=== PATIENT | female | born 1950 | race Caucasian/White ===

== ENCOUNTER 2022-11-10 12:57 | Emergency (ER) | payer MEDICARE, MEDICAID ==
[~2022-11-10] VITALS: Ht 165.1 cm; Wt 82.0 kg
[2022-11-10 16:16] LABS: BASOPHILS % 0.3 % (0.0-2.0); EOSINOPHILS % 1.3 % (0.0-5.0); HEMOGLOBIN. 12.8 g/dL (12.0-16.0); MEAN CORPUSCULAR VOLUME 90.1 fL (81.0-99.0); MONOCYTES % 9.9 % (2.0-8.0); NEUTROPHILS % 64.5 % (40.0-76.0); PLATELET 88 x1000/uL (130-400); RED BLOOD CELL COUNT 3.99 mill/uL (4.2-5.4); RED CELL DISTRIBUTION WIDTH 13.2 % (11.6-14.6)
[2022-11-10 16:26] LABS: CHLORIDE 109 mEq/L (98-107)
[2022-11-10 16:36] LABS: ETHANOL BLOOD < 10 mg/dL
[2022-11-10 19:20] VITALS: BP 161/70
== END 2022-11-10 19:33 | disposition home or self-care (01) ==
LOC: ER 13:27
DX: M79.662 Pain in left lower leg (principal); I10 Essential (primary) hypertension; R41.82 Altered mental status, unspecified; F31.9 Bipolar disorder, unspecified; I25.2 Old myocardial infarction; Z86.73 Personal history of transient ischemic attack (TIA), and cerebral infarction without residual deficits
CPT/HCPCS: 36415; 71045; 80053; 80320; 83880; 84484; 85025; 93005; 93970; 99285; G0480

== ENCOUNTER 2025-03-03 09:58 | Emergency (ER) | payer OTHER, MEDICAID ==
[~2025-03-03] VITALS: Ht 162.6 cm; Wt 100.0 kg
[~2025-03-03 09:58] MED LIST: AMLO5TAB88 PO; BACL-141 PO; BENZ1TAB78 PO; ESCI10TA PO; FURO40TA5 PO; ISOS30TA91 PO; LEVE500T19 PO; LISI40TA13 PO; PREG75CA76 PO; PRIM50TA5 PO; PROT40 MT; QUET200T30 PO; VALP250C3 PO
[2025-03-03 10:00] VITALS: O2SAT 98
[2025-03-03] MEDS: ACETAMINOPHEN 325MG TABLET PO ONE (10:26)
[2025-03-03] MEDS: ONDANSETRON HCL 4MG TABLET PO ONE (10:26)
[2025-03-03] MEDS ORDERED: TOPUD PO (11:48)
[2025-03-03 13:55] VITALS: BP 151/74; PULSE 80; RESP 14; TEMP 37.7; O2SAT 98
== END 2025-03-03 13:57 ==
LOC: ER 09:58
DX: S40.029A Contusion of unspecified upper arm, initial encounter (principal); E11.9 Type 2 diabetes mellitus without complications; F41.9 Anxiety disorder, unspecified; Z79.899 Other long term (current) drug therapy; Z86.73 Personal history of transient ischemic attack (TIA), and cerebral infarction without residual deficits; Z88.8 Allergy status to other drugs, medicaments and biological substances; X58.XXXA Exposure to other specified factors, initial encounter; Y93.89 Activity, other specified; Y92.89 Other specified places as the place of occurrence of the external cause; Y99.8 Other external cause status
CPT/HCPCS: 99284; 73060; Q0162; 99283

== ENCOUNTER 2025-03-30 17:38 | Emergency (ER) | payer OTHER, MEDICAID ==
[~2025-03-30] VITALS: Ht 152.4 cm; Wt 100.0 kg
[~2025-03-30 17:38] MED LIST changes: -LISI40TA13 PO; +LISI40TA21 PO; +TOPUD PO
[2025-03-30 17:59] VITALS: O2SAT 100
[2025-03-30] MEDS: KETOROLAC 15MG/ML VIAL IM ONE (19:50)
[2025-03-30 20:00] VITALS: BP 195/86; PULSE 96; RESP 16; TEMP 36.3; O2SAT 100
== END 2025-03-30 20:05 | disposition home or self-care (01) ==
LOC: ER 17:38
DX: S93.402A Sprain of unspecified ligament of left ankle, initial encounter (principal); I10 Essential (primary) hypertension; F31.9 Bipolar disorder, unspecified; E11.9 Type 2 diabetes mellitus without complications; F41.9 Anxiety disorder, unspecified; Z79.899 Other long term (current) drug therapy; Z86.73 Personal history of transient ischemic attack (TIA), and cerebral infarction without residual deficits; Z88.8 Allergy status to other drugs, medicaments and biological substances; X58.XXXA Exposure to other specified factors, initial encounter; Y93.89 Activity, other specified; Y92.89 Other specified places as the place of occurrence of the external cause; Y99.8 Other external cause status
CPT/HCPCS: 99283; 73610; J1885